=== PATIENT | male | born 1950 | race Caucasian/White ===

== ENCOUNTER → 2016-12-31 08:48 | Outpatient (CLI) | payer MEDICARE, OTHER ==
[2012-01-07 09:15] VITALS: BMI 25.6
[~2016-12-31 08:48] MED LIST: BACTRIM DS TABL1 TAB PO; CALCIUM 600+D T1 TA1 PO; NORVASC5 MG PO; PREDNISONE1 MG PO; SINGULAIR10 MG PO; SYNTHROID88 MCG PO
== END | disposition home or self-care (01) ==
LOC: D.RT 08:48
DX: J84.10 Pulmonary fibrosis, unspecified (principal)

== ENCOUNTER 2017-02-19 08:55 | Outpatient (CLI) | payer MEDICARE, OTHER ==
[~2017-02-19] VITALS: Ht 182.9 cm; Wt 88.6 kg
[2017-02-19 09:39] LABS: BASOPHILS 0.4 % (0-2); EOSINOPHILS 2.5 % (0-7); HEMATOCRIT 38.6 % (42.0-54.0); HEMOGLOBIN 12.2 g/dL (13.5-17.5); IMMATURE GRANULOCYTES 0.6 % (0-5); LYMPHOCYTES 16.6 % (15-50); MCH 27.5 pg (26.0-34.0); MCHC 31.6 g/dL (31.0-37.0); MCV 87.1 fL (80.0-100.0); MEAN PLATELET VOLUME 8.7 fL (7.4-10.4); MONOCYTES 7.2 % (2-11); NEUTROPHILS 72.7 % (40-80); PLATELET COUNT 349 10x3/uL (130-400); RBC 4.43 10x6/uL (4.20-6.10); RDW 15.3 % (11.5-14.5); WBC 7.2 10x3/uL (4.8-10.8)
[2017-02-19] MEDS ORDERED: BACTRIM DS TABL1 TAB PO (09:40)
[2017-02-19] MEDS ORDERED: SYNTHROID88 MCG PO (09:41)
[2017-02-19] MEDS ORDERED: PREDNISONE1 MG PO (09:41)
[2017-02-19] MEDS ORDERED: NORVASC5 MG PO (09:42)
[2017-02-19] MEDS ORDERED: SINGULAIR10 MG PO (09:42)
[2017-02-19] MEDS ORDERED: CALCIUM 600+D T1 TA1 PO (09:43)
[2017-02-19 09:51] LABS: APTT 31.8 SECONDS (22.8-39.4); INR 1.03 (0.85-1.17); PROTIME 13.1 SECONDS (11.6-15.0)
[2017-02-19 09:54] VITALS: BP 113/79; Ht 182.9 cm; Wt 88.6 kg
--- NOTE | 2017-02-19 15:21 | NUR ---
1150--ALL VITAL SIGNS CHARTED ON POST PROCEDURE VITAL SIGN SHEET ON CHART. HGERIKA RN
--- NOTE | 2017-02-19 15:21 | NUR ---
1350--IV DC'D. MAGALYS CASTRO 1405--DISCHARGE INSTRUCTIONS GIVEN, PT VERBALIZES UNDERSTANDING. MAGALYS CASTRO
[2017-02-20 16:13] LABS: AFB SPECIMEN PROCESSING Concentration (())
[2017-02-21 12:16] LABS: FUNGUS STAIN Final report (())
[2017-03-01 05:15] LABS: VIRAL - RESULT No virus isolated. (())
[2017-03-19 08:15] LABS: FUNGUS MYCOLOGY CULTURE Final report (())
[2017-04-07 17:12] LABS: ACID FAST CULTURE Negative (()); ACID FAST SMEAR Negative (())
== END 2017-02-19 14:05 | disposition home or self-care (01) ==
LOC: D.OPS 08:55
PROVIDERS: Internal Medicine Pulmonary Disease
DX: J47.9 Bronchiectasis, uncomplicated (principal); J44.9 Chronic obstructive pulmonary disease, unspecified; J84.10 Pulmonary fibrosis, unspecified; J30.9 Allergic rhinitis, unspecified; G47.33 Obstructive sleep apnea (adult) (pediatric); K21.9 Gastro-esophageal reflux disease without esophagitis; E03.9 Hypothyroidism, unspecified; D80.9 Immunodeficiency with predominantly antibody defects, unspecified; I73.00 Raynaud's syndrome without gangrene; Z01.812 Encounter for preprocedural laboratory examination

== ENCOUNTER → 2017-05-22 07:25 | Outpatient (CLI) | payer MEDICARE, OTHER ==
[2017-02-19 09:54] VITALS: BMI 26.5
== END | disposition home or self-care (01) ==
LOC: D.RAD 07:25
DX: J45.909 Unspecified asthma, uncomplicated (principal)

== ENCOUNTER → 2017-08-08 12:21 | Outpatient (CLI) | payer MEDICARE, OTHER ==
[2017-02-19 09:54] VITALS: BMI 26.5
[2017-08-08 14:52] LABS: BASOPHILS 0.1 % (0-2); EOSINOPHILS 0 % (0-7); HEMATOCRIT 41.4 % (42.0-54.0); HEMOGLOBIN 13.5 g/dL (13.5-17.5); IMMATURE GRANULOCYTES 0.3 % (0-5); LYMPHOCYTES 9.1 % (15-50); MCH 29.3 pg (26.0-34.0); MCHC 32.6 g/dL (31.0-37.0); MCV 89.8 fL (80.0-100.0); MEAN PLATELET VOLUME 9.2 fL (7.4-10.4); MONOCYTES 2.9 % (2-11); NEUTROPHILS 87.6 % (40-80); RBC 4.61 10x6/uL (4.20-6.10); RDW 15.5 % (11.5-14.5); WBC 8.6 10x3/uL (4.8-10.8)
[2017-08-08 14:57] LABS: PLATELET COUNT 246 10x3/uL (130-400)
[2017-08-08 15:15] LABS: CALC OSMOLALITY 280 mosm/kg (275-300); CALCIUM 8.8 mg/dL (8.5-10.1); CARBON DIOXIDE 29.9 mmol/L (21.0-32.0); CHLORIDE - SERUM 104 mmol/L (98-107); GLUCOSE 110 mg/dL (74-106); POTASSIUM - SERUM 4.4 mmol/L (3.5-5.1); SODIUM 140 mmol/L (136-145); UREA NITROGEN 16 mg/dL (7-18); eGFR NON AFRICAN AMERICAN 80 mL/min (90-120)
[2017-08-12 14:18] LABS: IGG SUBCLASS 1 1427 mg/dL (248-810); IGG SUBCLASS 2 506 mg/dL (130-555); IGG SUBCLASS 3 69 mg/dL (15-102); IGG SUBCLASS 4 9 mg/dL (2-96)
== END | disposition home or self-care (01) ==
LOC: D.RT 12:21
PROVIDERS: Internal Medicine Pulmonary Disease
DX: J84.10 Pulmonary fibrosis, unspecified (principal); J47.9 Bronchiectasis, uncomplicated

== ENCOUNTER → 2018-04-13 09:34 | Outpatient (CLI) | payer MEDICARE, OTHER ==
[2017-02-19 09:54] VITALS: BMI 26.5
== END | disposition home or self-care (01) ==
LOC: D.RT 09:34
DX: J84.116 Cryptogenic organizing pneumonia (principal)